=== PATIENT | female | born 1995 | race Caucasian/White ===

== ENCOUNTER 2022-04-15 11:10 | Emergency (ER) | payer SELFPAY ==
[~2022-04-15] VITALS: Ht 162.6 cm; Wt 59.1 kg
[2022-04-15 11:15] VITALS: BP 118/71
[2022-04-15] MEDS ORDERED: CYCL-1 PO (12:24)
== END 2022-04-15 12:35 | disposition home or self-care (01) ==
LOC: ER 11:11
DX: S16.1XXA Strain of muscle, fascia and tendon at neck level, initial encounter (principal); M62.838 Other muscle spasm; F12.90 Cannabis use, unspecified, uncomplicated; V89.2XXA Person injured in unspecified motor-vehicle accident, traffic, initial encounter; Y93.89 Activity, other specified; Y92.89 Other specified places as the place of occurrence of the external cause; Y99.8 Other external cause status
CPT/HCPCS: 99283